=== PATIENT | male | born 1985 | race Caucasian/White ===

== ENCOUNTER 2021-07-06 07:13 | Emergency (ER) | payer OTHER ==
[2021-07-06] MEDS ORDERED: Sodium Chloride 0.9% 10 ML Syringe FLUSH PRN (07:36)
[2021-07-06] MEDS ORDERED: Ondansetron 4 MG/2 ML SDV IV ONE (07:36)
[2021-07-06] MEDS ORDERED: Ketorolac 30 MG/ML SDV IVPUSH ONE (07:37)
[2021-07-06] MEDS ORDERED: Sodium Chloride 0.9% 1,000 ML IV ONE (07:37)
[2021-07-06] MEDS ORDERED: HYDROmorphone 1 MG/ML Syringe IVPUSH ONE (07:37)
[2021-07-06 08:18] LABS: CHLORIDE,CL 104 mmol/L (98-107); SODIUM,NA 140 mmol/L (136-145)
[2021-07-06] MEDS ORDERED: Piperacillin/Tazobactam 4.5 GM in Sodium Chloride 0.9% 100 ML IV ONE (08:30)
== END 2021-07-06 09:55 | disposition home or self-care (01) ==
LOC: DL.ED 07:13
DX: K57.32 Diverticulitis of large intestine without perforation or abscess without bleeding (principal); N20.0 Calculus of kidney; Z90.49 Acquired absence of other specified parts of digestive tract
CPT/HCPCS: 36415; 74176; 80053; 81001; 85025; 96365; 96375; 99284; 99284-25; J1170; J1885; J2405; J2543; J3490; J7030